=== PATIENT | female | born 1935 | race Caucasian/White ===

== ENCOUNTER → 2019-07-23 | Outpatient (CLI) | payer MEDICARE ==
[~2019-07-23] MED LIST: OMNIPAQUE 350 MG/ML, 100ML BOTTLE ONE
== END | disposition home or self-care (01) ==
LOC: CFH 12:51
PROVIDERS: ATTEND Nurse Practitioner
DX: K76.0 Fatty (change of) liver, not elsewhere classified (principal); I51.7 Cardiomegaly; I70.0 Atherosclerosis of aorta; N28.1 Cyst of kidney, acquired; M51.34 Other intervertebral disc degeneration, thoracic region; N32.89 Other specified disorders of bladder
CPT/HCPCS: 74177; Q9967

== ENCOUNTER → 2019-08-24 | Outpatient (CLI) | payer MEDICARE | END | disposition home or self-care (01) | LOC: CFH 15:49 | PROVIDERS: ATTEND Internal Medicine Cardiovascular Disease | DX: I08.3 Combined rheumatic disorders of mitral, aortic and tricuspid valves (principal) | CPT/HCPCS: 93306 ==

== ENCOUNTER 2019-12-03 03:06 | Observation (INO) | payer MEDICARE ==
[~2019-12-03] VITALS: Ht 147.3 cm; Wt 63.8 kg
[2019-12-03] MEDS ORDERED: DIPH,PERTUSS(ACELL),TET VAC/PF 0.5 ML IM-VACC ONE ×2 (03:30→05:07)
[2019-12-03] MEDS ORDERED: PLEASE ENTER ALLERGIES MC SCH (03:30)
[2019-12-03] MEDS ORDERED: LIDOCAINE 1%-EPI 1:100K, 20ML INFIL ONE (03:30)
--- NOTE | 2019-12-03 03:31 | NUR ---
Patient BIB [facility] post [facility] c/o right arm/wrist/hand pain. Patient has a full thickness lac to her forehead between her eyebrows. Patient states she is unsteady on her feet due to her knees. Denies LOC, syncopal episode, or dizziness. Patient is in NAD. REspirations even and labored.
--- NOTE | 2019-12-03 03:36 | NUR ---
DAUGHTER MARION [phone]
[2019-12-03 03:38] LABS: BASOPHILS # (AUTO) 0.05 x10^3/uL (0-0.1); BASOPHILS % (AUTO) 1 % (0-1); EOSINOPHILS # (AUTO) 0.57 x10^3/uL (0-0.4); EOSINOPHILS % (AUTO) 7 % (1-7); LYMPHOCYTES # (AUTO) 2.14 x10^3/uL (1-3.4); LYMPHOCYTES % (AUTO) 28 % (22-44); MD NO; MEAN CORPUSCULAR HEMOGLOBIN 31.4 pg (27.0-34.8); MEAN CORPUSCULAR VOLUME 95.3 fL (80-100); MEAN PLATELET VOLUME 8.2 fL (7.4-10.4); MONOCYTES % (AUTO) 7 % (2-9); NEUTROPHILS # (AUTO) 4.45 x10^3/uL (1.8-6.8); NEUTROPHILS % (AUTO) 58 % (42-75); PLATELET COUNT 252 x10^3/uL (130-400); RED CELL DISTRIBUTION WIDTH 17.8 % (9.6-15.2)
[2019-12-03] MEDS ORDERED: LIDOCAINE 1%-EPI 1:100K, 20ML ONE (03:43)
[2019-12-03 03:52] LABS: ALBUMIN 3.3 g/dL (3.4-5.0); ANION GAP 6 mmol/L (5-15); CALCIUM 8.8 mg/dL (8.5-10.1); CHLORIDE 109 mmol/L (98-107); CREATININE 1.75 mg/dL (0.55-1.02)
[2019-12-03] MEDS ORDERED: PRAV40TA2 PO (03:54)
[2019-12-03] MEDS ORDERED: METO25TA35 PO (03:54)
[2019-12-03] MEDS ORDERED: LOSA100T14 PO (03:54)
[2019-12-03] MEDS ORDERED: CHOL10003 PO (03:54)
[2019-12-03] MEDS ORDERED: AMLO-150 PO (03:54)
[2019-12-03] MEDS ORDERED: APIX2.5T PO (03:54)
[2019-12-03] MEDS ORDERED: LEVO50TA5 PO (03:54)
[2019-12-03] MEDS ORDERED: CYAN500L2 PO (03:54)
[2019-12-03] MEDS ORDERED: ALEN70TA6 PO (03:54)
[2019-12-03] MEDS ORDERED: PARO20TA4 PO (03:54)
[2019-12-03] MEDS ORDERED: ALLO100T30 PO (03:54)
[2019-12-03] MEDS ORDERED: CALC-534 PO (03:54)
[2019-12-03 03:56] LABS: TROPONIN I < 0.015 ng/mL (0.000-0.045)
[2019-12-03] MEDS ORDERED: OMNIPAQUE 350 MG/ML, 75ML BOTTLE ONE (04:06)
--- NOTE | 2019-12-03 04:07 | NUR ---
Patient in CT. Daughter at bedside.
[2019-12-03] MEDS ORDERED: CEFTRIAXONE PMX 1GM/50ML 50 ML IV ONE (05:30)
[2019-12-03] MEDS ORDERED: AZITHROMYCIN 500 MG in SODIUM CHLORIDE 0.9% 250 ML IV ONE (05:30)
[2019-12-03] MEDS ORDERED: CEFTRIAXONE PMX 1GM/50ML 50 ML ONE (05:42)
--- NOTE | 2019-12-03 06:12 | NUR ---
Sutures completed by ERP at this time.
--- NOTE | 2019-12-03 07:00 | NUR ---
RECEIVED BEDSIDE REPORT FROM PRICILA NICOLE
--- NOTE | 2019-12-03 07:09 | NUR ---
PT RESTING ON GURNEY. NADN. PHILLIPSS. AWAITING ROOM ASSIGNMENT.
--- NOTE | 2019-12-03 07:30 | NUR ---
REPORT TO PRICILA GALICIA. ALL QUESTIONS ANSWERED.
--- NOTE | 2019-12-03 07:39 | NUR ---
PT AND DAUGHTER REEDUCATED REGARDING NEED FOR ADMISSION. BOTH VERBALIZED UNDERSTANDING
--- NOTE | 2019-12-03 07:57 | NUR ---
LATE ENTRY FOR 0710 ROCEPHIN BAG EMPTY AND ATTACHED TO PIV. REMOVED IV AND FLUSHED LINE.
--- NOTE | 2019-12-03 07:58 | NUR ---
PT TRANSPORTED TO FLOOR. PT LEFT WITH ALL PERSONAL BELONGINGS.
[2019-12-03 08:20] VITALS: BP 151/83
[2019-12-03] MEDS ORDERED: METOPROLOL TARTRATE 25 MG TAB PO SCH (09:00)
[2019-12-03] MEDS ORDERED: hydrALAzine 20 MG/ML, 1ML IVPush PRN (09:00)
[2019-12-03] MEDS ORDERED: LOSARTAN 100 MG TAB PO SCH (09:00)
[2019-12-03] MEDS ORDERED: ONDANSETRON 2MG/ML, 2ML IVPush PRN (09:00)
[2019-12-03] MEDS ORDERED: ACETAMINOPHEN 325 MG TABLET PO PRN (09:00)
[2019-12-03] MEDS: LEVOTHYROXINE 50 MCG TABLET PO SCH (10:18)
[2019-12-03] MEDS: AMLODIPINE 10 MG TAB PO SCH (10:18)
[2019-12-03] MEDS: PAROXETINE 20 MG TABLET PO SCH (10:19)
[2019-12-03] MEDS: CHOLECALCIFEROL 1,000 UNIT TABLET PO SCH (10:19)
[2019-12-03] MEDS: APIXABAN 2.5 MG TABLET PO SCH ×2 (10:19→21:12)
[2019-12-03] MEDS ORDERED: OXYcodone IR 5MG TABLET PO PRN (12:30)
[2019-12-03] MEDS: LIDODERM 5% PATCH TD SCH (13:04)
[2019-12-03 16:00] VITALS: BP 162/53
[2019-12-03] MEDS: ACETAMINOPHEN 325 MG TABLET PO SCH ×2 (17:13→21:11)
[2019-12-03 19:31] VITALS: BP 164/63
[2019-12-03] MEDS ORDERED: PRAVASTATIN 40 MG TABLET PO SCH (21:00)
[2019-12-04] MEDS ORDERED: LIDODERM REMOVE PATCH NOTE XX SCH (00:31)
[2019-12-04 00:53] VITALS: BP 147/54
[2019-12-04] MEDS: LEVOTHYROXINE 50 MCG TABLET PO SCH (05:38)
[2019-12-04 06:18] LABS: MEAN CORPUSCULAR HEMOGLOBIN 30.9 pg (27.0-34.8); MEAN CORPUSCULAR HGB CONC 32.6 g/dL (32.4-35.8); MEAN CORPUSCULAR VOLUME 94.8 fL (80-100); MEAN PLATELET VOLUME 8.2 fL (7.4-10.4); PLATELET COUNT 209 x10^3/uL (130-400)
[2019-12-04 06:27] LABS: ANION GAP 6 mmol/L (5-15); CALCIUM 8.7 mg/dL (8.5-10.1); CHLORIDE 112 mmol/L (98-107)
[2019-12-04 06:31] LABS: BASOPHILS # (AUTO) 0.03 x10^3/uL (0-0.1); BASOPHILS % (AUTO) 1 % (0-1); EOSINOPHILS # (AUTO) 0.37 x10^3/uL (0-0.4); EOSINOPHILS % (AUTO) 6 % (1-7); LYMPHOCYTES # (AUTO) 1.98 x10^3/uL (1-3.4); LYMPHOCYTES % (AUTO) 30 % (22-44); MD SCAN; MONOCYTES # (AUTO) 0.34 x10^3/uL (0.2-0.8); MONOCYTES % (AUTO) 5 % (2-9); NEUTROPHILS # (AUTO) 3.81 x10^3/uL (1.8-6.8); NEUTROPHILS % (AUTO) 58 % (42-75); RED CELL DISTRIBUTION WIDTH 17.7 % (9.6-15.2)
[2019-12-04 06:40] LABS: CREATININE 1.54 mg/dL (0.55-1.02)
[2019-12-04 08:24] VITALS: BP 165/74
[2019-12-04] MEDS ORDERED: METOPROLOL TARTRATE 25 MG TAB PO SCH (09:00)
[2019-12-04] MEDS: AMLODIPINE 10 MG TAB PO SCH (09:36)
[2019-12-04] MEDS: ACETAMINOPHEN 325 MG TABLET PO SCH ×2 (09:36→17:05)
[2019-12-04] MEDS: CHOLECALCIFEROL 1,000 UNIT TABLET PO SCH (09:37)
[2019-12-04] MEDS: PAROXETINE 20 MG TABLET PO SCH (09:37)
[2019-12-04] MEDS: APIXABAN 2.5 MG TABLET PO SCH (09:37)
[2019-12-04] MEDS ORDERED: LOSARTAN 50MG TABLET PO SCH (10:23)
[2019-12-04] MEDS: LIDODERM 5% PATCH TD SCH (12:53)
[2019-12-04 13:55] VITALS: BP 156/86
== END 2019-12-04 18:38 | disposition home or self-care (01) ==
LOC: ED 05:42 → INTOOBSV 06:41 → EDIP 06:41 → 4EST 08:00
PROVIDERS: ADMIT Internal Medicine; ATTEND Hospitalist
DX: S27.321A Contusion of lung, unilateral, initial encounter (principal); S01.112A Laceration without foreign body of left eyelid and periocular area, initial encounter; S01.81XA Laceration without foreign body of other part of head, initial encounter; I12.9 Hypertensive chronic kidney disease with stage 1 through stage 4 chronic kidney disease, or unspecified chronic kidney disease; N18.9 Chronic kidney disease, unspecified; E03.9 Hypothyroidism, unspecified; I48.91 Unspecified atrial fibrillation; M10.9 Gout, unspecified; M81.0 Age-related osteoporosis without current pathological fracture; R55 Syncope and collapse; M79.641 Pain in right hand; R09.02 Hypoxemia; D64.9 Anemia, unspecified; F03.90 Unspecified dementia, unspecified severity, without behavioral disturbance, psychotic disturbance, mood disturbance, and anxiety; J90 Pleural effusion, not elsewhere classified; W01.190A Fall on same level from slipping, tripping and stumbling with subsequent striking against furniture, initial encounter; Y93.89 Activity, other specified; Y92.89 Other specified places as the place of occurrence of the external cause; Z87.891 Personal history of nicotine dependence; Z96.612 Presence of left artificial shoulder joint; Z86.73 Personal history of transient ischemic attack (TIA), and cerebral infarction without residual deficits; Z79.01 Long term (current) use of anticoagulants; Z79.899 Other long term (current) drug therapy; Z23 Encounter for immunization
CPT/HCPCS: 13132; 36415; 70450; 71260; 72125; 73060; 73070; 73090; 73130; 80048; 82040; 84443; 84484; 85025; 87040; 90471; 90715; 93005; 96365; 96367; 97162; 99285; G0378; J0456; J0696; J7050; Q9967